=== PATIENT | female | born 1975 | race Caucasian/White ===

== ENCOUNTER → 2018-08-30 | Outpatient (CLI) | payer OTHER, SELFPAY | END | disposition home or self-care (01) | PROVIDERS: Referring Provider Urology; Visit Provider Urology | DX: Z87.440 Personal history of urinary (tract) infections (principal) | CPT/HCPCS: 36415; 84132 ==

== ENCOUNTER 2018-09-28 06:34 | Day surgery (SDC) | payer OTHER, SELFPAY ==
[2018-09-28] VITALS (7 sets, daily range): BP systolic 99–136; BP diastolic 70–86; PULSE 69–82; RESP 16–18; TEMP 36.5–36.6; O2SAT 95–100; BMI 32.4
[2018-09-28 07:04] LABS: Internal QC Validated? YES +Cl - CLEAR BKGD
[2018-09-28 07:05] LABS: Pregnancy, Urine Negative Negative
[2018-09-28] MEDS: Vancomycin IV 1,000 MG/200 ML BAG 200 MG IV (07:08)
--- NOTE | 2018-09-28 09:02 | PCM.OPRPT ---
Problem List (1) Urinary urgency Status: Acute (2) Urinary frequency Status: Acute (3) Nocturnal enuresis Status: Acute Report of Operation Date of Procedure: 09/28/18 Pre-Operative Diagnosis: Urinary urgency, urinary frequency and nocturnal enuresis Post-Operative Diagnosis: Same Surgery/Procedure Performed:: InterStim stage I Description of Surgical Findings:: Wallace response on all 4 leads good toe response on lead #1. Lead placed into the left S3 foramen due to patient sleeping on her right side Type of Anesthesia:: MAC Estimated Blood Loss (mL): 5 cc Description of Procedure: The patient is a 43-year-old female with severe refractory urinary urgency, frequency and nocturnal enuresis. After undergoing a full evaluation in the office with urodynamics and cystoscopy she agreed to proceed with InterStim stage I therapy. Informed consent was obtained. The patient was taken to the operating room placed in a prone position on the operating room table. Anesthesia monitored the head, neck, airway, IV access and vital signs throughout the case. She was appropriately administered the patient was prepped and draped in usual sterile fashion. Fluoroscopy was used to visualize the S3 foramen and landmarks were marked on the skin. The skin was anesthetized with lidocaine. Needle was placed into the S3 foramen on the left side. Good response was achieved with wallace and toe flexion. The guidewire was then passed an incision was made for the lead insertion site. The area was dilated with a dilator and then the lead was inserted. All 4 leads had good wallace response and lead I had a good toe flexion. The lead was left in this position was tunneled to the site for the pocket. The boot was attached and the lead was secured using the torque wrench. The boot was then tied closed using Prolene. This lead extension was tunneled cephalad. The incisions were closed using 3-0 interrupted Vicryl followed by 4-0 subcuticular suturing. The incisions were then closed with Dermabond. The battery was attached to the lead extension and was covered with an OpSite followed by cloth tape. The patient tolerated the procedure well without complication. Grafts/Implants Used: InterStim lead - Complications None - Admit VTE Documentation VTE Present on Admission: No VTE Mechan Device Prophylaxis: None VTE Pharm Prophylaxis ordered?: No Reason prophylaxis not ordered:: Treatment Not Indicated
--- NOTE | 2018-09-28 09:07 | PCM.DC.URO ---
Discharge Diet: No Restrictions Additional Activity Instructions:: Avoid bending pushing and pulling, keep the incision clean and dry. Call your doctor if your incision/area has: Continuous Slow Oozing, Sudden Increased Bleeding, Increased Pain/ Swelling, Increased Redness, Foul Smelling Discharge, Swelling at the incision site Call your doctor if you observe: Fever of 101 or Higher, Inability to urinate, Inability to have a bowel movement, Shortness of breath, Chest pain, Calf discomfort, Uncontrolled pain Allergies/Adverse Reactions: Allergies No Known Allergies Allergy (Verified 09/21/18 14:47) Medications to take at Discharge Amlodipine Besylate [Norvasc] 5 mg PO DAILY 09/21/18 [place]-3 Fatty Acids [Fish Oil] 500 mg PO DAILY 09/21/18 RX: Garlic 1 each PO DAILY 09/21/18 Venlafaxine XR [Effexor Xr] 150 mg PO DAILY 09/21/18 Primary Care Physician: Care Physician,No Primary [Primary Care Provider] - Test Results: Test results from this visit will be discussed in further detail at your follow-up appointment, if applicable. Please Follow Up With: Abigail Lucero MD When: as scheduled for stage 2 Proposed Discharge Date: 09/28/18
== END 2018-09-28 10:17 | disposition home or self-care (01) ==
LOC: SDC 06:36 → AC 06:38
PROVIDERS: Anesthesiology; Referring Provider Urology; Visit Provider Urology
PROC: (CPT 64581; principal; 2018-09-28 07:50)
DX: Z45.42 Encounter for adjustment and management of neurostimulator (principal); N39.44 Nocturnal enuresis; R35.0 Frequency of micturition; R39.15 Urgency of urination; F41.9 Anxiety disorder, unspecified; F32.9 Major depressive disorder, single episode, unspecified; Z79.899 Other long term (current) drug therapy; I10 Essential (primary) hypertension; M54.5 Low back pain
CPT/HCPCS: 00630; 64581; 76000; 81025; J7120; C1778; J2405

== ENCOUNTER 2018-10-12 11:34 | Day surgery (SDC) | payer OTHER, SELFPAY ==
[2018-09-28 06:54] VITALS: BMI 32.4
[2018-10-12 11:56] VITALS: BP 137/87; PULSE 75; RESP 16; TEMP 36.6; O2SAT 97; BMI 32.2
[2018-10-12 12:02] LABS: Internal QC Validated? YES +Cl - CLEAR BKGD; Pregnancy, Urine Negative Negative
[2018-10-12] MEDS: Cefazolin 2 GM in 0.9% Normal Saline 100 ML IV (14:22)
[2018-10-12 15:05] VITALS: BP 121/66; BP 137/87; PULSE 74; RESP 16; TEMP 36.3; O2SAT 98
[2018-10-12 15:10] VITALS: BP 109/81; BP 137/87; PULSE 71; RESP 16; O2SAT 99
--- NOTE | 2018-10-12 15:14 | PCM.OPRPT ---
Problem List (1) Urinary urgency Status: Acute (2) Urinary frequency Status: Acute (3) Nocturnal enuresis Status: Acute Report of Operation Date of Procedure: 10/12/18 Pre-Operative Diagnosis: Urinary urgency, urinary frequency, nocturnal enuresis. Post-Operative Diagnosis: Same. Surgery/Procedure Performed:: InterStim removal. Description of Surgical Findings:: No complications, the entire InterStim including the lead in boot and lead extension were removed. Type of Anesthesia:: MAC Specimen's removed: Interstim Lead and lead extension Estimated Blood Loss (mL): 5cc Description of Procedure: Patient is a 43-year-old female with severe nocturnal enuresis along with urinary urgency and frequency. She underwent a stage I InterStim trial which was inserted approximately 2 weeks ago. For the last 2 weeks she has had 0 episodes of nocturnal enuresis, however she decided that she did not like the InterStim and would like to have it removed. Risks benefits and alternatives were discussed and informed consent was obtained. Patient was taken to the operating room placed in a prone position on the operating room table. She was a probably padded and secured to the table. Anesthesia monitored the head, neck, airway, IV access of vital signs throughout the case. Once anesthesia was appropriately administered the patient was prepped and draped in usual sterile fashion. Her existing incisions were infiltrated with 1% lidocaine. They were opened using a knife and hemostat. The boot was brought into the incision and the wire for the lead extension was cut. The incision over the lead was opened and the lead was easily identified and brought into the field. It was removed in its entirety using hemostat. The incisions were irrigated with sterile saline and were then closed using 3-0 interrupted Vicryl followed by 4-0 subcuticular sutures. They were closed with Dermabond and OpSite. She was awakened and taken to the recovery room in good condition. There were no complications during this procedure. Grafts/Implants Used: none - Complications none - Admit VTE Documentation VTE Present on Admission: Yes VTE Mechan Device Prophylaxis: SCD's VTE Pharm Prophylaxis ordered?: No Reason prophylaxis not ordered:: Treatment Not Indicated
[2018-10-12 15:15] VITALS: BP 121/82; BP 137/87; PULSE 87; RESP 16; O2SAT 98
[2018-10-12 15:20] VITALS: BP 137/87; BP 141/91; PULSE 84; RESP 16; TEMP 36.2; O2SAT 100
--- NOTE | 2018-10-12 15:20 | DCINST_ITS ---
Discharge Diet: No Restrictions Discharge Activity: May not drive while taking narcotic pain medications. May resume sexual activity in: 1 week Call your doctor if your incision/area has: Continuous Slow Oozing, Sudden Increased Bleeding, Increased Pain/ Swelling, Increased Redness, Foul Smelling Discharge, Swelling at the incision site Call your doctor if you observe: Fever of 101 or Higher, Inability to urinate, Inability to have a bowel movement, Shortness of breath, Chest pain, Calf discomfort, Uncontrolled pain Cleanse incision/area with: Keep Dressing Clean & Dry Allergies/Adverse Reactions: Allergies No Known Allergies Allergy (Verified 10/11/18 16:49) Medications to take at Discharge Amlodipine Besylate [Norvasc] 5 mg PO DAILY 09/21/18 Garlic 1 each PO DAILY 09/21/18 [place]-3 Fatty Acids [Fish Oil] 500 mg PO DAILY 09/21/18 Venlafaxine XR [Effexor Xr] 150 mg PO DAILY 09/21/18 Primary Care Physician: [facility] ,Out of [Primary Care Provider] - Test Results: Test results from this visit will be discussed in further detail at your follow- up appointment, if applicable. Please Follow Up With: Abiagil Lucero MD When: call for appt in 1 week Proposed Discharge Date: 10/12/18
[2018-10-12 15:52] VITALS: BP 137/87
--- NOTE | 2018-10-21 10:26 | HP.PCM_ITS ---
Problem List (1) Urinary urgency Status: Acute (2) Urinary frequency Status: Acute (3) Nocturnal enuresis Status: Acute History of Present Illness Date of Admission: 10/12/18 Chief Complaint: Nocturnal enuresis, urgency and frequency of urination The patient is a 43 year old F who underwent a stage I InterStim for treatment of her nocturnal enuresis. She has had no bedwetting in the last 2 weeks. She still wants the device removed today. She has no fever, chills, nausea or vomiting. She understands that removing the device will mean that if she proceeds she will have to undergo a stage I and II concurrently. Past Medical History Allergies No Known Allergies Allergy (Verified 10/11/18 16:49) Home Medications: Ambulatory Orders Medication Instructions Recorded Amlodipine Besylate [Norvasc] 5 mg PO DAILY 09/21/18 Garlic 1 each PO DAILY 09/21/18 [place]-3 Fatty Acids [Fish Oil] 500 mg PO DAILY 09/21/18 Venlafaxine XR [Effexor Xr] 150 mg PO DAILY 09/21/18 Surgical History: - - Interstim Stage 1 Smoking Status: Never smoker Review of Systems Constitutional: Denies: Anorexia, Night Sweats, Weight Change Eyes: Denies: Vision Change HEENT: Denies: Visual Changes Cardiovascular: Denies: Chest Pain Respiratory: Denies: Shortness of Breath Gastrointestinal: Denies: Abdominal Pain, Nausea, Vomiting Genitourinary: Reports: Frequency, Incontinence, Nocturia, Urgency Gynecological: Denies: Breast symptoms Musculoskeletal: Denies: Muscle pain Skin: Denies: Rash Neurological: Denies: Seizures VTE Information - Inpt Only VTE Present on Admission: Yes VTE Mechan Device Prophylaxis: SCD's VTE Pharm Prophylaxis ordered?: No Reason prophylaxis not ordered:: Treatment Not Indicated - Physical Exam General: Alert, Oriented x3, Cooperative, No apparent distress HEENT: Atraumatic, Normocephalic Oral: Moist Mucosa Neck: Supple Lungs: Normal air movement Cardiovascular: Regular rate, Regular Rhythm Abdomen: Soft, Non Tender Skin: No rashes Musculoskeletal: No Muscle Wasting Neurological: Cranial nerves II-XII grossly intact Psych/Mental Status: Anxious Vital Signs Temp Pulse Resp BP Pulse Ox 97.2 F L 84 16 141/91 H 100 10/12/18 15:20 10/12/18 15:20 10/12/18 15:20 10/12/18 15:20 10/12/18 15:20 Oxygen Delivery Method Room Air Weight: 99.1 kg Body Mass Index (BMI) 32.2 Assessment/Plan All Active Problems Urinary urgency (Acute) Urinary frequency (Acute) Nocturnal enuresis (Acute) Proceed with removal of the Interstim lead, and lead extention. Informed consent obtained.
== END 2018-10-12 15:54 | disposition home or self-care (01) ==
LOC: SDC 11:38 → AC 11:39
PROVIDERS: Referring Provider Urology; Visit Provider Urology
PROC: (CPT 64585; principal; 2018-10-12 13:35)
DX: Z45.49 Encounter for adjustment and management of other implanted nervous system device (principal); N39.44 Nocturnal enuresis; R35.0 Frequency of micturition; R39.15 Urgency of urination; F41.9 Anxiety disorder, unspecified; F32.9 Major depressive disorder, single episode, unspecified; Z79.899 Other long term (current) drug therapy; I10 Essential (primary) hypertension
CPT/HCPCS: 00300; 64585; 64595; 81025; J7120

== ENCOUNTER 2019-02-08 06:02 | Day surgery (SDC) | payer OTHER, SELFPAY ==
[2019-02-08 06:51] VITALS: BP 133/89; PULSE 72; RESP 16; TEMP 36.8; O2SAT 98; BMI 32.9
[2019-02-08 06:52] LABS: Internal QC Validated? YES +Cl - CLEAR BKGD; Pregnancy, Urine Negative Negative
[2019-02-08] MEDS: Lactated Ringers 1,000 ML 100 ML IV (07:02)
[2019-02-08] MEDS: Vancomycin IV 1,000 MG/200 ML BAG 200 MG IV (07:19)
--- NOTE | 2019-02-08 07:30 | RAD_ITS ---
STUDY: X-RAY - PELVIS REASON FOR EXAM: Female, 43 years old. Pain TECHNIQUE: One view of the pelvis was obtained. 23.9 seconds of fluoroscopy time was utilized along with 17.06 mGy COMPARISON: None. FINDINGS: 2 views of the sacrum were obtained fluoroscopically showing a neurostimulator device in place projected over the right sacral alar. RAD/Pelvis 1 or 2 Views IMPRESSION: A neurostimulator device is noted in place projecting over the right sacral alar Electronically Signed: Albert Roy, at 10:18 EDT Tel , Service support ,
[2019-02-08 08:31] VITALS: BP 122/85; BP 133/89; PULSE 92; RESP 16; TEMP 36.2; O2SAT 95
--- NOTE | 2019-02-08 08:34 | PCM.OPRPT ---
Problem List (1) Urinary urgency Status: Acute (2) Urinary frequency Status: Acute (3) Nocturnal enuresis Status: Acute Report of Operation Date of Procedure: 02/08/19 Pre-Operative Diagnosis: Urinary urgency, urinary frequency, nocturnal enuresis Post-Operative Diagnosis: Same Surgery/Procedure Performed:: InterStim stage I and II Description of Surgical Findings:: left sided lead, 3inch needle, good suzanne on 1, 2, and 3. Type of Anesthesia:: Local MAC Special Medications: Vancomycin 1 g IV Estimated Blood Loss (mL): 5cc Description of Procedure: The patient is a 43-year-old female who had a successful stage I InterStim procedure for urinary urgency, frequency and nocturnal enuresis. She now presents for stage I and II. All risk benefits and alternatives were discussed and she agreed to proceed. Patient was taken to the operating room and placed in a prone position on the operating room table. Anesthesia monitored the head, neck, airway, IV access and vital signs throughout the case. Once anesthesia was appropriately administered the patient was prepped and draped in usual sterile fashion. Using fluoroscopic visualization, the S3 foramen was mapped out onto the skin using a skin marker. The area of lead insertion was anesthetized with lidocaine with epinephrine. The needle was placed without difficulty into the S3 foramen with good suzanne response. The guidewire was then placed and the skin was incised. The dilator was inserted over the guidewire into the S3 foramen and the lead was inserted. This was visualized fluoroscopically. The leads were tested in leads I, II and III received strong suzanne. Despite significant manipulation, lead 0 did not respond with the suzanne. I feel this is likely secondary to insertion in the same location as previously. However, given the strong nature of the suzanne we did receive, I proceeded with insertion of the implant. At this time the pocket site was anesthetized and opened with a knife. Bovie was used for hemostatic control. Using the tunneling device the lead was tunneled into the pocket site and dried and inserted into the IPG. It was screwed into position. The IPG was placed into the pocket site and impedances were found to be appropriate. Skin incision was closed in 2 layers using 3-0 interrupted Vicryl followed by 4-0 subcuticular suturing. The skin was then closed with Dermabond. The patient was awakened and taken to the recovery room in good condition. There were no complications during the procedure. Grafts/Implants Used: InterStim lead and IPG - Complications None - Admit VTE Documentation VTE Present on Admission: No VTE Mechan Device Prophylaxis: None VTE Pharm Prophylaxis ordered?: No Reason prophylaxis not ordered:: Treatment Not Indicated
[2019-02-08 08:36] VITALS: BP 111/67; BP 133/89; PULSE 86; RESP 16; O2SAT 96
--- NOTE | 2019-02-08 08:39 | DCINST_ITS ---
Discharge Diet: No Restrictions Discharge Activity: May not drive while taking narcotic pain medications., - - May shower morning. May resume sexual activity in: 2 weeks Call your doctor if your incision/area has: Continuous Slow Oozing, Sudden Increased Bleeding, Increased Pain/ Swelling, Increased Redness, Foul Smelling Discharge, Swelling at the incision site Call your doctor if you observe: Fever of 101 or Higher, Inability to urinate, Inability to have a bowel movement, Shortness of breath, Chest pain, Calf discomfort Allergies/Adverse Reactions: Allergies No Known Allergies Allergy (Verified 02/01/19 11:30) Medications to take at Discharge Amlodipine Besylate [Norvasc] 10 mg PO DAILY 09/21/18 [place]-3 Fatty Acids [Fish Oil] 1,000 mg PO DAILY 09/21/18 Venlafaxine XR [Effexor Xr] 75 mg PO DAILY 09/21/18 Multivitamins,Therapeutic [Multivitamin] 1 tab PO DAILY 02/01/19 Primary Care Physician: ISAC TRONCOSO [Other] Test Results: Test results from this visit will be discussed in further detail at your follow- up appointment, if applicable. Please Follow Up With: Abigail Lucero MD When: 2 weeks, call office for appt Proposed Discharge Date: 02/08/19
[2019-02-08 08:41] VITALS: BP 114/80; BP 133/89; PULSE 86; RESP 16; O2SAT 96
[2019-02-08 08:46] VITALS: BP 127/63; BP 133/89; PULSE 82; RESP 16; TEMP 36.7; O2SAT 95
[2019-02-08] MEDS: HYDROcodone Bitartrate/Apap 5/325 Tablet PO (09:28)
[2019-02-08 10:50] VITALS: BP 133/89
== END 2019-02-08 10:50 | disposition home or self-care (01) ==
LOC: SDC 06:05 → AC 06:05
PROVIDERS: Anesthesiology; Referring Provider Urology; Visit Provider Urology
PROC: (CPT 64581; principal; 2019-02-08 07:20)
PROC: (CPT 64581; 2019-02-08 07:20)
DX: Z45.49 Encounter for adjustment and management of other implanted nervous system device (principal); N39.44 Nocturnal enuresis; R39.15 Urgency of urination; R35.0 Frequency of micturition; I10 Essential (primary) hypertension; J45.990 Exercise induced bronchospasm; M41.9 Scoliosis, unspecified; F41.9 Anxiety disorder, unspecified; Z79.899 Other long term (current) drug therapy
CPT/HCPCS: 64581; 64590; 72170; 76000; 81025; J7120; C1767; C1778

== ENCOUNTER → 2019-03-04 10:04 | Outpatient (CLI) | payer OTHER, SELFPAY ==
[2019-02-08 06:51] VITALS: BMI 32.9
[2019-03-04 12:53] LABS: Anion Gap 11 (5-15); BUN 20 mg/dL (7-18); BUN/Creat Ratio 23.2 RATIO (10-20); Calcium,Total 8.8 mg/dL (8.5-10.1); Chloride 105 mmol/L (98-107); Creatinine, Serum 0.86 mg/dL (0.55-1.02); EST Glomerular Filtration Rate 77 mL/min (>60); Est Glom Filt Rate - Afr Amer 93 mL/min (>60); Glucose 82 mg/dL (74-106); Potassium 4.2 mmol/L (3.5-5.1); Sodium Level 138 mmol/L (136-145)
== END ==
PROVIDERS: Referring Provider Urology; Visit Provider Urology
DX: N39.44 Nocturnal enuresis (principal); R35.1 Nocturia
CPT/HCPCS: 36415; 80048

== ENCOUNTER → 2020-10-19 12:38 | Outpatient (CLI) | payer OTHER, SELFPAY ==
--- NOTE | 2020-10-19 17:00 | US_ITS ---
STUDY: ULTRASOUND OF THE FEMALE PELVIS - COMPLETE REASON FOR EXAM: Female, 45 years old. Abnormal uterine bleeding LMP: 09/20/2020 TECHNIQUE: Transabdominal and Transvaginal TECHNICAL QUALITY: Adequate. COMPARISON: None. FINDINGS: The uterus is anteverted and is in a midline position. The uterus measures 7.1 x 4.6 x 3.5 cm. Normal uterine cervix. The endometrium measures 3 mm in thickness, and is hyperechoic. There is no demonstrated endometrial mass. [The information systems technician notes to subcentimeter fibroids, larger measures 9 mm. I.U.D. - The patient does not have an I.U.D. The right ovary is visualized. The right ovary measures 2.2 x 1.4 x 1.0 cm. There is no right ovarian cyst or ovarian mass. There is no visualized right adnexal mass or complex lesion. There is normal arterial and normal venous vascularity. The left ovary is visualized. The left ovary measures 2.6 x 2.2 x 1.8 cm. There is no left ovarian cyst or ovarian mass. There is no visualized left adnexal mass or complex lesion. There is normal arterial and normal venous vascularity. There is no fluid in the cul-de-sac. The bladder is sonographically normal US/Transvaginal Non- IMPRESSION: 2 subcentimeter uterine fibroids, normal-appearing endometrium Sonographically normal ovaries and bladder Electronically Signed: Jonh Huertas MD at 8:45 EDT , Service support ,
--- NOTE | 2020-10-19 17:00 | US_ITS ---
STUDY: ULTRASOUND OF THE FEMALE PELVIS - COMPLETE REASON FOR EXAM: Female, 45 years old. Abnormal uterine bleeding LMP: 09/20/2020 TECHNIQUE: Transabdominal and Transvaginal TECHNICAL QUALITY: Adequate. COMPARISON: None. FINDINGS: The uterus is anteverted and is in a midline position. The uterus measures 7.1 x 4.6 x 3.5 cm. Normal uterine cervix. The endometrium measures 3 mm in thickness, and is hyperechoic. There is no demonstrated endometrial mass. [The ecdis n navigation operator notes to subcentimeter fibroids, larger measures 9 mm. I.U.D. - The patient does not have an I.U.D. The right ovary is visualized. The right ovary measures 2.2 x 1.4 x 1.0 cm. There is no right ovarian cyst or ovarian mass. There is no visualized right adnexal mass or complex lesion. There is normal arterial and normal venous vascularity. The left ovary is visualized. The left ovary measures 2.6 x 2.2 x 1.8 cm. There is no left ovarian cyst or ovarian mass. There is no visualized left adnexal mass or complex lesion. There is normal arterial and normal venous vascularity. There is no fluid in the cul-de-sac. The bladder is sonographically normal US/Pelvic (Non ) IMPRESSION: 2 subcentimeter uterine fibroids, normal-appearing endometrium Sonographically normal ovaries and bladder Electronically Signed: Jonh Huertas MD at 8:45 EDT , Service support ,
== END ==
LOC: OPUS 12:40
PROVIDERS: PCP Student in an Organized Health Care Education/Training Program; Referring Provider Obstetrics & Gynecology; Visit Provider Obstetrics & Gynecology
DX: N93.9 Abnormal uterine and vaginal bleeding, unspecified (principal)
CPT/HCPCS: 76830; 76856

== ENCOUNTER → 2020-10-23 14:41 | Outpatient (CLI) | payer OTHER, SELFPAY ==
[2020-10-23 14:07] VITALS: BMI 32.9
[2020-10-23 15:36] LABS: Estradiol 48.5 pg/mL; Follicle Stimulating Hormone 23.7 mIU/mL; Prolactin 5.1 ng/mL; Thyroid Stim Hormone (TSH) 1.42 uIU/mL (0.358-3.74)
[2020-11-01 14:50] LABS: Testosterone Free <0.2 pg/mL (0.0-4.2)
== END ==
LOC: PAVLAB 14:42
PROVIDERS: PCP Student in an Organized Health Care Education/Training Program; Referring Provider Obstetrics & Gynecology; Visit Provider Obstetrics & Gynecology
DX: N93.9 Abnormal uterine and vaginal bleeding, unspecified (principal)
CPT/HCPCS: 36415; 82627; 82670; 83001; 84146; 84402; 84443; 82626

== ENCOUNTER → 2020-12-27 | Outpatient (CLI) | payer OTHER, SELFPAY ==
[2021-01-01 22:34] LABS: HPV APTIMA, High Risk Negative (Negative)
== END | disposition home or self-care (01) ==
LOC: LABSPEC 16:52
PROVIDERS: PCP Student in an Organized Health Care Education/Training Program; Referring Provider Obstetrics & Gynecology; Visit Provider Obstetrics & Gynecology
DX: Z12.4 Encounter for screening for malignant neoplasm of cervix (principal)
CPT/HCPCS: 87624; 88175; G0145